=== PATIENT | male | born 1990 | race Caucasian/White ===

== ENCOUNTER 2016-04-16 16:54 | Emergency (ER) | payer MEDICARE, MEDICAID | END 2016-04-16 21:57 | disposition home or self-care (01) | LOC: ER 16:54 | DX: J40 Bronchitis, not specified as acute or chronic (principal); F31.9 Bipolar disorder, unspecified; Z82.49 Family history of ischemic heart disease and other diseases of the circulatory system | CPT/HCPCS: 36415; 71010; 80053; 82553; 84484; 85025; 93005 ==